=== PATIENT | male | born 1970 | race Caucasian/White ===

== ENCOUNTER 2020-04-26 14:58 | Emergency (ER) | payer OTHER ==
[~2020-04-26] VITALS: Ht 182.9 cm; Wt 105.7 kg
[2020-04-26] MEDS ORDERED: SODIUM CHLORIDE 0.9% 1,000 ML IV ONE (16:00)
[2020-04-26 17:25] VITALS: BP 109/64
== END 2020-04-26 17:30 | disposition home or self-care (01) ==
LOC: ER 14:58
DX: T50.901A Poisoning by unspecified drugs, medicaments and biological substances, accidental (unintentional), initial encounter (principal); X58.XXXA Exposure to other specified factors, initial encounter; Y93.89 Activity, other specified; Y92.89 Other specified places as the place of occurrence of the external cause; Y99.8 Other external cause status
CPT/HCPCS: 71045; 96360; 99283; J7030; 93005